=== PATIENT | female | born 1965 | race Hispanic/Latino ===

== ENCOUNTER → 2018-07-06 | Day surgery (SDC) | payer MEDICARE ==
[~2018-07-06] MED LIST: ACTOS30 MG PO; AMITRIPTYLINE H25 MG PO; ATORVASTATIN CA20 MG PO; CYMBALTA30 MG PO; FENTANYL CITRATE/PF 100MCG/2 ML INJ ONE; INVOKANA PO; LISINOPRIL2.5 MG PO; METFORMIN HCL500 MG PO; MIDAZOLAM HCL 2 MG/2 ML VIAL ONE; MOTRIN200 MG PO; NEURONTIN400 MG PO; PROPOFOL IV EMULSION 10 MG/ML 50 ML VIAL ONE; TRESIBA SC; TRICOR48 MG PO; ULTRACET TABLE1 EACH PO
--- OUTSIDE RECORDS SUMMARY | 2018-07-06 05:56 | XMS REPORT | Summary of Care ---
Author Author [facility] Organization [facility] Address Unknown Phone Unavailable Encounter BEENA Carpio(DEB) [id number] Date(s): 01/11/15 - 01/13/15 [facility] [address] [place], [place] [id number]- Discharge Disposition: Home Attending Physician: Humberto Chopra MD Admitting Physician: Humberto Chopra MD Vital Signs 1 2 3 Most recent to oldest [Reference Range]: 157.48 cm (01/11/15 2:20 PM) 157.48 cm (01/11/15 10:41 AM) Height 1 2 3 Most recent to oldest [Reference Range]: 100.7 kg (01/12/15 5:00 AM) Current Weight 1 2 3 Most recent to oldest [Reference Range]: 97.9 DegF (01/13/15 3:09 PM) 98.1 DegF (01/13/15 12:35 PM) 98.9 DegF (01/13/15 7:39 AM) Temperature Oral [96.4-99.1 DegF] 1 2 3 Most recent to oldest [Reference Range]: 118/79 mmHg (01/13/15 3:09 PM) 107/73 mmHg (01/13/15 12:35 PM) 126/81 mmHg (01/13/15 7:39 AM) Blood Pressure [90-140/60-90 mmHg] 1 2 3 Most recent to oldest [Reference Range]: 20 BRMIN (01/13/15 3:09 PM) 20 BRMIN (01/13/15 12:35 PM) 18 BRMIN (01/13/15 7:39 AM) Respiratory Rate [14-20 BRMIN] 1 2 3 Most recent to oldest [Reference Range]: 82 bpm (01/13/15 3:09 PM) 80 bpm (01/13/15 12:35 PM) 84 bpm (01/13/15 7:39 AM) Peripheral Pulse Rate [60-100 bpm] 1 2 3 Most recent to oldest [Reference Range]: 97.727 kg (01/11/15 2:20 PM) 97.727 kg (01/11/15 10:41 AM) Weight 1 2 3 Most recent to oldest [Reference Range]: 39.41 m2 (01/11/15 2:20 PM) 39.41 m2 (01/11/15 10:41 AM) Body Mass Index Problem List Condition Effective Dates Status Health Status Informant Boil(Confirmed)1 Resolved Diabetes(Confirmed) Resolved Hypertension(Confirm Resolved ed) 1left abd. Allergies, Adverse Reactions, Alerts Substance Reaction Severity Status NKDA Active Medications acetaminophen 650 mg, 2 tab, Route: PO, Drug form: TAB, Q4H, Dosing Weight 97.727, kg, PRN For Temp > 100.4 F, Start date: 01/11/15 14:12:00, Duration: 30 day, Stop date: 02/10/15 14:11:00 Notes: Do not exceed 4 gm/day. (Same as: Tylenol) Start Date: 01/11/15 Stop Date: 01/13/15 Status: Discontinued acetaminophen-codeine 300 mg-30 mg oral tablet 1 tab, PO, Q6H, PRN pain, # 28 tab, 0 Refill(s) Start Date: 01/12/15 Stop Date: 01/13/15 Status: Discontinued albuterol-ipratropium 2.5-0.5 mg inhalation solution 3 ml, Route: NEB, Drug Form: SOLN, Dosing Weight 97.727, kg, RQ6H, Start date: 1 20:00:00, Duration: 30 day, Stop date: 02/10/15 14:00:00 Notes: (Same as: Duoneb) Start Date: 01/11/15 Stop Date: 01/13/15 Status: Discontinued alteplase 79.2 mg, Route: IV, ONCE, Dosing Weight 97.727, kg, For Stroke Infusion, Priorit y: STAT, Start date: 01/11/15 11:46:00, Stop date: 01/11/15 11:46:00 Start Date: 01/11/15 Stop Date: 01/11/15 Status: Completed alteplase 8.8 mg, Route: IV, ONCE, Dosing Weight 97.727, kg, For Stroke Bolus, Priority: S TAT, Start date: 01/11/15 11:46:00, Stop date: 01/11/15 11:46:00 Start Date: 01/11/15 Stop Date: 01/11/15 Status: Completed aspirin 81 mg tablet, enteric coated 81 mg, 1 tab, Route: PO, Drug form: ECTAB, ONCE, Priority: NOW, Start date: 12/26 12/10 16:28:00, Stop date: 01/13/15 16:28:00 Notes: Do not crush or chew.(Same As: Ecotrin) Start Date: 01/13/15 Stop Date: 01/13/15 Status: Completed aspirin 81 mg tablet, enteric coated 81 mg=1 tab, PO, Daily, # 30 tab, 0 Refill(s) Start Date: 01/13/15 Stop Date: 02/12/15 Status: Ordered aspirin 81 mg tablet, enteric coated 81 mg, 1 tab, Route: PO, Drug form: ECTAB, Daily, Dosing Weight 97.727, kg, Star t date: 01/13/15 10:30:00, Duration: 30 day, Stop date: 02/12/15 9:00:00 Notes: Do not crush or chew.(Same As: Ecotrin) Start Date: 01/13/15 Stop Date: 01/13/15 Status: Discontinued aspirin 81 mg tablet, enteric coated 81 mg, 1 tab, Route: PO, Drug form: ECTAB, Daily, Dosing Weight 97.727, kg, Star t date: 01/14/15 9:00:00, Duration: 30 day, Stop date: 02/12/15 9:00:00 Notes: Do not crush or chew.(Same As: Ecotrin) Start Date: 01/14/15 Stop Date: 01/13/15 Status: Canceled atorvastatin 10 mg, 1 tab, Route: PO, Drug form: TAB, Bedtime, Dosing Weight 97.727, kg, Star t date: 01/13/15 21:00:00, Duration: 30 day, Stop date: 02/11/15 21:00:00 Notes: (Same As: Lipitor) Start Date: 01/13/15 Stop Date: 01/13/15 Status: Canceled atorvastatin 10 mg, 1 tab, Route: PO, Drug form: TAB, Bedtime, Dosing Weight 97.727, kg, Star t date: 01/13/15 21:00:00, Duration: 30 day, Stop date: 02/11/15 21:00:00 Notes: (Same As: Lipitor) Start Date: 01/13/15 Stop Date: 01/13/15 Status: Canceled atorvastatin 10 mg oral tablet 10 mg=1 tab, PO, Bedtime, # 30 tab, 0 Refill(s) Start Date: 01/13/15 Stop Date: 02/12/15 Status: Ordered BD Normal Saline Flush 10 mL, Route: IVP, Drug Form: INJ, PRN, PRN Line Flush, Start date: 01/12/15 15: 07:00, Duration: 30 day, Stop date: 02/11/15 14:06:00 Notes: (Same as: BD Posiflush) Start Date: 01/12/15 Stop Date: 01/13/15 Status: Discontinued calcium carbonate 500 mg (200 mg elemental calcium) oral tablet 1,000 mg, 2 tab, Route: PO, Drug form: TAB, PRN, Dosing Weight 97.727, kg, PRN A bnormal Lab Result, FOR ICU USE ONLY, Start date: 01/11/15 14:12:00, Duration: 3 0 day, Stop date: 02/10/15 13:11:00 Notes: 500mg elemental [id number] calcium carbonate. Contains 500mg element al calcium. (Same As: OsCal 500) Start Date: 01/11/15 Stop Date: 01/12/15 Status: Discontinued calcium carbonate 500 mg (200 mg elemental calcium) oral tablet 500 mg, 1 tab, Route: PO, Drug form: TAB, PRN, Dosing Weight 97.727, kg, PRN Abn ormal Lab Result, FOR ICU USE ONLY, Start date: 01/11/15 14:12:00, Duration: 30 day, Stop date: 02/10/15 13:11:00 Notes: 500mg elemental [id number] calcium carbonate. Contains 500mg element al calcium. (Same As: OsCal 500) Start Date: 01/11/15 Stop Date: 01/12/15 Status: Discontinued calcium gluconate 1 gm, 50 mL, Route: IVPB, Drug form: INJ, PRN, Dosing Weight 97.727, kg, PRN Abn ormal Lab Result, Start date: 01/11/15 14:12:00, Duration: 30 day, Stop date: 13:11:00, FOR ICU USE ONLY Special Instructions: FOR ICU USE ONLY Start Date: 01/11/15 Stop Date: 01/12/15 Status: Discontinued Dextrose 50% Syringe 12.5 gm, 25 mL, Route: IVP, Drug Form: INJ, Dosing Weight 97.727, kg, PRN, PRN B lood Glucose Results, Start date: 01/12/15 21:40:00, Duration: 30 day, Stop date : 02/11/15 20:39:00 Start Date: 01/12/15 Stop Date: 01/13/15 Status: Discontinued Dextrose 50% Syringe 25 gm, 50 mL, Route: IVP, Drug Form: INJ, Dosing Weight 97.727, kg, PRN, PRN Blo od Glucose Results, Start date: 01/12/15 21:40:00, Duration: 30 day, Stop date: 02/11/15 20:39:00 Start Date: 01/12/15 Stop Date: 01/13/15 Status: Discontinued gabapentin 800 mg oral tablet 800 mg=1 tab, PO, TID, # 270 tab, 0 Refill(s) Start Date: 01/12/15 Status: Ordered glucagon 1 mg, Route: IM, Drug form: PDR/INJ, PRN, Dosing Weight 97.727, kg, PRN Blood Gl ucose Results, Start date: 01/12/15 21:40:00, Duration: 30 day, Stop date: 02/11 20:39:00 Start Date: 01/12/15 Stop Date: 01/13/15 Status: Discontinued insulin aspart 10 unit, 0.1 mL, Route: SUB-Q, Drug form: SOLN, TID-Before Meals, Dosing Weight 97.727, kg, PRN Blood Glucose Results, Start date: 01/12/15 21:40:00, Duration: 30 day, Stop date: 02/11/15 21:39:00 Notes: Roll in palms of hands gently; Do not shake vigorously. (Same as: NovoLO G)"single patient use only" Stable for 28 days at room temperature.Expires in _ ____ days from Date Start Date: 01/12/15 Stop Date: 01/13/15 Status: Discontinued insulin aspart 8 unit, 0.08 mL, Route: SUB-Q, Drug form: SOLN, TID-Before Meals, Dosing Weight 97.727, kg, PRN Blood Glucose Results, Start date: 01/12/15 21:40:00, Duration: 30 day, Stop date: 02/11/15 21:39:00 Notes: Roll in palms of hands gently; Do not shake vigorously. (Same as: NovoLO G)"single patient use only" Stable for 28 days at room temperature.Expires in _ ____ days from Date Start Date: 01/12/15 Stop Date: 01/13/15 Status: Discontinued insulin aspart 6 unit, 0.06 mL, Route: SUB-Q, Drug form: SOLN, TID-Before Meals, Dosing Weight 97.727, kg, PRN Blood Glucose Results, Start date: 01/12/15 21:40:00, Duration: 30 day, Stop date: 02/11/15 21:39:00 Notes: Roll in palms of hands gently; Do not shake vigorously. (Same as: NovoLO G)"single patient use only" Stable for 28 days at room temperature.Expires in _ ____ days from Date Start Date: 01/12/15 Stop Date: 01/13/15 Status: Discontinued insulin aspart 4 unit, 0.04 mL, Route: SUB-Q, Drug form: SOLN, TID-Before Meals, Dosing Weight 97.727, kg, PRN Blood Glucose Results, Start date: 01/12/15 21:40:00, Duration: 30 day, Stop date: 02/11/15 21:39:00 Notes: Roll in palms of hands gently; Do not shake vigorously. (Same as: NovoLO G)"single patient use only" Stable for 28 days at room temperature.Expires in _ ____ days from Date Start Date: 01/12/15 Stop Date: 01/13/15 Status: Discontinued insulin aspart 2 unit, 0.02 mL, Route: SUB-Q, Drug form: SOLN, TID-Before Meals, Dosing Weight 97.727, kg, PRN Blood Glucose Results, Start date: 01/12/15 21:40:00, Duration: 30 day, Stop date: 02/11/15 21:39:00 Notes: Roll in palms of hands gently; Do not shake vigorously. (Same as: NovoLO G)"single patient use only" Stable for 28 days at room temperature.Expires in _ ____ days from Date Start Date: 01/12/15 Stop Date: 01/13/15 Status: Discontinued labetalol 10 mg, 2 mL, Route: IVP, Drug form: INJ, Q10Min, Dosing Weight 97.727, kg, PRN H ypertension, For SBP > 180 mmHg and/or DBP > 105 mmHg, Priority: Routine, Start date: 01/11/15 14:20:00, Duration: 30 day, Stop date: 02/10/15 13:19:00 Notes: (Same as: Normodyne, Trandate)Push over 2 minutes Give bolus over 2-3 mi nutes. Start Date: 01/11/15 Stop Date: 01/13/15 Status: Discontinued Levemir 100 units/mL See Instructions, 50 units SUQ every morning, 0 Refill(s) Special Instructions: 50 units SUQ every morning Start Date: 01/12/15 Status: Ordered lisinopril 2.5 mg, 0.5 tab, Route: PO, Drug form: TAB, Daily, Dosing Weight 97.727, kg, Sta rt date: 01/12/15 9:00:00, Duration: 30 day, Stop date: 02/10/15 9:00:00 Notes: (Same as: Prinivil, Zestril) Start Date: 01/12/15 Stop Date: 01/13/15 Status: Discontinued lisinopril 2.5 mg oral tablet 2.5 mg=1 tab, PO, Daily, # 30 tab, 0 Refill(s) Start Date: 01/12/15 Status: Ordered magnesium oxide 800 mg, 2 tab, Route: PO, Drug form: TAB, PRN, Dosing Weight 97.727, kg, PRN Abn ormal Lab Result, FOR ICU USE ONLY, Start date: 01/11/15 14:12:00, Duration: 30 day, Stop date: 02/10/15 13:11:00 Notes: (Same as: Mag-Ox 400)Magnesium oxide [id number] elemental magnesiumDose= ____mg magnesium oxide (___mg elemental magnesium) Start Date: 01/11/15 Stop Date: 01/12/15 Status: Discontinued magnesium sulfate 2 gm, 50 mL, Route: IVPB, Drug form: INJ, PRN, Dosing Weight 97.727, kg, PRN Abn ormal Lab Result, Start date: 01/11/15 14:12:00, Duration: 30 day, Stop date: 13:11:00, FOR ICU USE ONLY Special Instructions: FOR ICU USE ONLY Start Date: 01/11/15 Stop Date: 01/12/15 Status: Discontinued metFORMIN 500 mg oral tablet 1,000 mg=2 tab, PO, BID-Meals, # 30 tab, 0 Refill(s) Start Date: 01/12/15 Status: Ordered Neutra-Phos 2 pkt, Route: PO, Drug Form: PDR/REC, Dosing Weight 97.727, kg, PRN, PRN Abnorma l Lab Result, FOR ICU USE ONLY, Start date: 01/11/15 14:12:00, Duration: 30 day, Stop date: 02/10/15 13:11:00 Notes: (Same as: Neutra-Phos) Each 1.25 gm pkt has 250mg phosphorous. Mix w/2.5 oz water and stir. Start Date: 01/11/15 Stop Date: 01/12/15 Status: Discontinued pantoprazole 40 mg, Route: IVP, Drug form: INJ, Daily, Dosing Weight 97.727, kg, Start date: 01/12/15 9:00:00, Duration: 30 day, Stop date: 02/10/15 9:00:00 Notes: For IV push reconstitute with 10 ml 0.9% sodium chloride and push over 2 minutes. (Same as: Protonix) Start Date: 01/12/15 Stop Date: 01/12/15 Status: Discontinued potassium chloride 20 mEq, 15 mL, Route: NJ, Drug form: LIQ, PRN, Dosing Weight 97.727, kg, PRN Abn ormal Lab Result, Start date: 01/11/15 14:12:00, Duration: 30 day, Stop date: 13:11:00, FOR ICU USE ONLY Special Instructions: FOR ICU USE ONLY Notes: (Same as: Potassium Chloride) Start Date: 01/11/15 Stop Date: 01/12/15 Status: Discontinued potassium chloride 20 mEq, 100 mL, Route: IVPB, Drug form: INJ, PRN, Dosing Weight 97.727, kg, PRN Abnormal Lab Result, Via central line, Start date: 01/11/15 14:12:00, Duration: 30 day, Stop date: 02/10/15 13:11:00, FOR ICU USE ONLY Special Instructions: FOR ICU USE ONLY Notes: (Same as: KCL) Infuse no faster than 10 mEq/hr if given peripherally. Start Date: 01/11/15 Stop Date: 01/12/15 Status: Discontinued potassium chloride 10 mEq, 100 mL, Route: IVPB, Drug form: INJ, PRN, Dosing Weight 97.727, kg, PRN Abnormal Lab Result, Via peripheral line, Start date: 01/11/15 14:12:00, Duratio n: 30 day, Stop date: 02/10/15 13:11:00, FOR ICU USE ONLY Special Instructions: FOR ICU USE ONLY Notes: Infuse at a rate of 10 mEq/hr.(Same as: KCL) Start Date: 01/11/15 Stop Date: 01/12/15 Status: Discontinued potassium chloride 20 mEq, 1 tab, Route: PO, Drug form: ERTAB, PRN, Dosing Weight 97.727, kg, PRN A bnormal Lab Result, Start date: 01/11/15 14:12:00, Duration: 30 day, Stop date: 02/10/15 13:11:00, FOR ICU USE ONLY Special Instructions: FOR ICU USE ONLY Notes: (Same as: K-Dur 20)"Do Not Crush" With food and full glass of water Start Date: 01/11/15 Stop Date: 01/12/15 Status: Discontinued potassium phosphate 15 mmol, 250 mL, Route: IVPB, Drug form: INJ, PRN, Dosing Weight 97.727, kg, PRN Abnormal Lab Result, Start date: 01/11/15 14:12:00, Duration: 30 day, Stop date: 02/10/15 13:11:00, FOR ICU USE ONLY Special Instructions: FOR ICU USE ONLY Notes: (Same as: K Phosphate) Start Date: 01/11/15 Stop Date: 01/12/15 Status: Discontinued potassium phosphate 30 mmol, 250 mL, Route: IVPB, Drug form: INJ, PRN, Dosing Weight 97.727, kg, PRN Abnormal Lab Result, Start date: 01/11/15 14:12:00, Duration: 30 day, Stop date: 02/10/15 13:11:00, FOR ICU USE ONLY Special Instructions: FOR ICU USE ONLY Notes: (Same as: K Phosphate.) Start Date: 01/11/15 Stop Date: 01/12/15 Status: Discontinued potassium phosphate + Sodium Chloride 0.9% IV 250 mL 45 mmol, 15 mL, Route: IVPB, PRN, Dosing Weight 97.727, kg, PRN Abnormal Lab Res ult, Start date: 01/11/15 14:12:00, Duration: 30 day, Stop date: 02/10/15 13:11: 00, FOR ICU USE ONLY Special Instructions: FOR ICU USE ONLY Notes: (Same as: K Phosphate.) 1 mMol phoshate has 1.47 mEq potassium Infuse o lizz 4 hours Start Date: 01/11/15 Stop Date: 01/12/15 Status: Discontinued Protonix 40 mg, 1 tab, Route: PO, Drug form: ECTAB, Before Dinner, Dosing Weight 97.727, kg, Start date: 01/13/15 16:30:00, Duration: 30 day, Stop date: 02/11/15 16:30:0 0 Notes: Tablet should not be chewed or crushed.(Same as: Protonix) Start Date: 01/13/15 Stop Date: 01/13/15 Status: Discontinued Protonix 40 mg, Route: IVP, Drug form: INJ, Daily, Dosing Weight 97.727, kg, Patient is N PO, Priority: STAT, Start date: 01/11/15 14:12:00, Duration: 30 day, Stop date: 02/10/15 9:00:00 Notes: For IV push reconstitute with 10 ml 0.9% sodium chloride and push over 2 minutes. (Same as: Protonix) Start Date: 01/11/15 Stop Date: 01/13/15 Status: Discontinued Saline Flush 0.9% 10 ml, Route: IVP, Drug Form: INJ, Dosing Weight 97.727, kg, PRN, PRN Line Flush , Start date: 01/11/15 14:12:00, Duration: 30 day, Stop date: 02/10/15 13:11:00 Notes: (Same as: BD Posiflush) Start Date: 01/11/15 Stop Date: 01/12/15 Status: Discontinued Saline Flush 0.9% 10 ml, Route: IVP, Drug Form: INJ, Dosing Weight 97.727, kg, Q12H, Start date: 1 21:00:00, Duration: 30 day, Stop date: 02/10/15 9:00:00 Notes: (Same as: BD Posiflush) Start Date: 01/11/15 Stop Date: 01/12/15 Status: Discontinued Saline Flush 0.9% 10 ml, Route: IVP, Drug Form: INJ, Dosing Weight 97.727, kg, PRN, PRN Line Flush , Start date: 01/11/15 14:20:00, Stop date: 02/10/15 13:19:00 Notes: (Same as: BD Posiflush) Start Date: 01/11/15 Stop Date: 01/12/15 Status: Discontinued Saline Flush 0.9% 10 ml, Route: IVP, Drug Form: INJ, Dosing Weight 97.727, kg, Q12H, Start date: 1 21:00:00, Duration: 30 day, Stop date: 02/10/15 9:00:00 Notes: (Same as: BD Posiflush) Start Date: 01/11/15 Stop Date: 01/12/15 Status: Discontinued senna 8.6 mg, 1 tab, Route: PO, Drug Form: TAB, Dosing Weight 97.727, kg, Q12H, Start date: 01/11/15 21:00:00, Duration: 30 day, Stop date: 02/10/15 9:00:00 Notes: (Same as: Lin) Start Date: 01/11/15 Stop Date: 01/13/15 Status: Discontinued Sodium Chloride 0.9% IV 250 mL, Route: IVPB, Start date: 01/12/15 15:07:00, Duration: 30 day, Stop date: 02/11/15 14:06:00, PRN Line Flush Start Date: 01/12/15 Stop Date: 01/13/15 Status: Discontinued Sodium Chloride 0.9% IV 1,000 mL 1,000 mL, Rate: 75 ml/hr, Infuse over: 13.3 hr, Route: IV, Dosing Weight 97.727 kg, Total Volume: 1,000, Start date: 01/11/15 14:28:00, Stop date: 02/10/15 14:2 7:00 Start Date: 01/11/15 Stop Date: 01/13/15 Status: Discontinued sodium phosphate 15 mmol, 250 mL, Route: IVPB, Drug form: INJ, PRN, Dosing Weight 97.727, kg, PRN Abnormal Lab Result, Start date: 01/11/15 14:12:00, Duration: 30 day, Stop date: 02/10/15 13:11:00, FOR ICU USE ONLY Special Instructions: FOR ICU USE ONLY Start Date: 01/11/15 Stop Date: 01/12/15 Status: Discontinued sodium phosphate 30 mmol, 250 mL, Route: IVPB, Drug form: INJ, PRN, Dosing Weight 97.727, kg, PRN Abnormal Lab Result, Start date: 01/11/15 14:12:00, Duration: 30 day, Stop date: 02/10/15 13:11:00, FOR ICU USE ONLY Special Instructions: FOR ICU USE ONLY Start Date: 01/11/15 Stop Date: 01/12/15 Status: Discontinued sodium phosphate + Sodium Chloride 0.9% IV 250 mL 45 mmol, 15 mL, Route: IVPB, PRN, Dosing Weight 97.727, kg, PRN Abnormal Lab Res ult, Start date: 01/11/15 14:12:00, Duration: 30 day, Stop date: 02/10/15 13:11: 00, FOR ICU USE ONLY Special Instructions: FOR ICU USE ONLY Start Date: 01/11/15 Stop Date: 01/12/15 Status: Discontinued tramadol 50 mg oral tablet 50 mg=1 tab, PO, Q6H, PRN Pain, # 40 tab, 0 Refill(s) Start Date: 01/12/15 Stop Date: 01/22/15 Status: Ordered TriCor 145 mg, PO, Daily, 0 Refill(s) Start Date: 01/12/15 Status: Ordered Results ELECTROLYTES 1 2 3 Most recent to oldest [Reference Range]: 139 mEq/L (01/13/15 5:39 AM) 136 mEq/L (01/12/15 3:36 AM) 130 mEq/L *LOW* (01/11/15 11:10 AM) Sodium Lvl [135-145 mEq/L] 4.1 mEq/L (01/13/15 5:39 AM) 4.4 mEq/L (01/12/15 3:36 AM) 5.0 mEq/L (01/11/15 11:10 AM) Potassium Lvl [3.5-5.1 mEq/L] 106 mEq/L (01/13/15 5:39 AM) 105 mEq/L (01/12/15 3:36 AM) 102 mEq/L (01/11/15 11:10 AM) Chloride Lvl [95-109 mEq/L] 24 mEq/L (01/13/15 5:39 AM) 22 mEq/L *LOW* (01/12/15 3:36 AM) 23 mEq/L *LOW* (01/11/15 11:10 AM) CO2 [24-32 mEq/L] 13.1 mEq/L (01/13/15 5:39 AM) 13.4 mEq/L (01/12/15 3:36 AM) 10.0 mEq/L (01/11/15 11:10 AM) AGAP [10.0-20.0 mEq/L] CHEM PANEL 1 2 3 Most recent to oldest [Reference Range]: 0.8 mg/dL (01/13/15 5:39 AM) 1.1 mg/dL (01/12/15 3:36 AM) 1.4 mg/dL (01/11/15 11:10 AM) Creatinine Lvl [0.5-1.4 mg/dL] 86 mL/min/1.73m2 1 *NA* (01/13/15 5:39 AM) 58 mL/min/1.73m2 2 *NA* (01/12/15 3:36 AM) 44 mL/min/1.73m2 3 *NA* (01/11/15 11:10 AM) eGFR 15 mg/dL (01/13/15 5:39 AM) 19 mg/dL (01/12/15 3:36 AM) 26 mg/dL *HI* (01/11/15 11:10 AM) BUN [7-22 mg/dL] 19 (01/11/15 11:10 AM) B/C Ratio [6-25] 170 mg/dL *HI* (01/13/15 5:39 AM) 149 mg/dL *HI* (01/12/15 3:36 AM) 346 mg/dL *HI* (01/11/15 11:10 AM) Glucose Lvl [70-99 mg/dL] 8.2 g/dL (01/11/15 11:10 AM) Total Protein [6.4-8.4 g/dL] 3.4 g/dL *LOW* (01/11/15 11:10 AM) Albumin Lvl [3.5-5.0 g/dL] 4.8 g/dL *HI* (01/11/15 11:10 AM) Globulin [2.0-4.0 g/dL] 0.7 (01/11/15 11:10 AM) A/G Ratio [0.7-1.6] 8.7 mg/dL (01/13/15 5:39 AM) 8.8 mg/dL (01/12/15 3:36 AM) 9.3 mg/dL (01/11/15 11:10 AM) Calcium Lvl [8.5-10.5 mg/dL] 3.4 mg/dL (01/12/15 3:36 AM) Phosphorus [2.5-4.5 mg/dL] 1.8 mg/dL (01/12/15 3:36 AM) Magnesium Lvl [1.8-2.4 mg/dL] 22 unit/L (01/11/15 11:10 AM) ALT [0-65 unit/L] 21 unit/L (01/11/15 11:10 AM) AST [0-37 unit/L] 72 unit/L (01/11/15 11:10 AM) Alk Phos [39-136 unit/L] 0.3 mg/dL (01/11/15 11:10 AM) Bili Total [0.2-1.3 mg/dL] 1Result Comment: The eGFR is calculated using the CKD-EPI formula. In most young, healthy individuals the eGFR will be >90 mL/min/1.73m2. The eGFR declines with age. An eGFR of 60-89 may be normal in some populations, particularly the elderly, for whom the CKD-EPI formula has not been extensively validated. Use of the eGFR is not recommended in the following populations: Individuals with unstable creatinine concentrations, including patients and those with serious co-morbid conditions. Patients with extremes in muscle mass or diet. The data above are obtained from the National Kidney Disease Education Program ( NKDEP) which additionally recommends that when the eGFR is used in patients with extremes of body mass index for purposes of drug dosing, the eGFR should be mul tiplied by the estimated BMI. 2Result Comment: The eGFR is calculated using the CKD-EPI formula. In most young, healthy individuals the eGFR will be >90 mL/min/1.73m2. The eGFR declines with age. An eGFR of 60-89 may be normal in some populations, particularly the elderly, for whom the CKD-EPI formula has not been extensively validated. Use of the eGFR is not recommended in the following populations: Individuals with unstable creatinine concentrations, including patients and those with serious co-morbid conditions. Patients with extremes in muscle mass or diet. The data above are obtained from the National Kid[employer] Disease Education Program ( NKDEP) which additionally recommends that when the eGFR is used in patients with extremes of body mass index for purposes of drug dosing, the eGFR should be mul tiplied by the estimated BMI. 3Result Comment: The eGFR is calculated using the CKD-EPI formula. In most young, healthy individuals the eGFR will be >90 mL/min/1.73m2. The eGFR declines with age. An eGFR of 60-89 may be normal in some populations, particularly the elderly, for whom the CKD-EPI formula has not been extensively validated. Use of the eGFR is not recommended in the following populations: Individuals with unstable creatinine concentrations, including patients and those with serious co-morbid conditions. Patients with extremes in muscle mass or diet. The data above are obtained from the National Kidney Disease Education Program ( NKDEP) which additionally recommends that when the eGFR is used in patients with extremes of body mass index for purposes of drug dosing, the eGFR should be mul tiplied by the estimated BMI. CARDIAC ENZYMES 1 2 3 Most recent to oldest [Reference Range]: 210 unit/L *HI* (01/11/15 11:10 AM) Total CK [12-191 unit/L] 3.4 ng/mL (01/11/15 11:10 AM) CK MB [0.5-3.6 ng/mL] 1.6 (01/11/15 11:10 AM) CK MB Index [0.0-2.5] <0.02 ng/mL (01/12/15 3:36 AM) <0.02 ng/mL (01/11/15 2:56 PM) <0.02 ng/mL (01/11/15 11:10 AM) Troponin-I [0.00-0.40 ng/mL] LIPIDS 1 2 3 Most recent to oldest [Reference Range]: 3.12 *LOW* (01/11/15 2:56 PM) 3.18 *LOW* (01/11/15 2:56 PM) CHD Risk [3.90-5.80] 159 mg/dL (01/11/15 2:56 PM) 159 mg/dL (01/11/15 2:56 PM) Chol [<=199 mg/dL] 111 mg/dL (01/11/15 2:56 PM) 111 mg/dL (01/11/15 2:56 PM) Trig [<=149 mg/dL] 51 mg/dL *LOW* (01/11/15 2:56 PM) 50 mg/dL *LOW* (01/11/15 2:56 PM) HDL [>=61 mg/dL] 86 mg/dL (01/11/15 2:56 PM) 87 mg/dL (01/11/15 2:56 PM) LDL (Calculated) [<=99 mg/dL] 22 *NA* (01/11/15 2:56 PM) 22 *NA* (01/11/15 2:56 PM) VLDL SPECIAL CHEMISTRY 1 2 3 Most recent to oldest [Reference Range]: 10.1 % *HI* (01/11/15 2:56 PM) Hgb A1C [<=5.6 %] THYROID PANEL 1 2 3 Most recent to oldest [Reference Range]: 2.490 uIU/mL (01/11/15 2:56 PM) TSH [0.360-3.740 uIU/mL] PARATHYROID PROFILE 1 2 3 Most recent to oldest [Reference Range]: 1.23 mMol/L (01/12/15 3:36 AM) Ca Ion WB [1.05-1.25 mMol/L] 1.21 mMol/L (01/12/15 3:36 AM) Ca Norm WB [1.05-1.25 mMol/L] URINE AND STOOL 1 2 3 Most recent to oldest [Reference Range]: Clear (01/11/15 2:35 PM) UA Turbidity [Clear] Light Yellow *NA* (01/11/15 2:35 PM) UA Color [Yellow] 5.0 (01/11/15 2:35 PM) UA pH [5.0-8.0] 1.012 (01/11/15 2:35 PM) UA Spec Grav [<=1.030] 500mg/dL *NA* (01/11/15 2:35 PM) UA Glucose Negative (01/11/15 2:35 PM) UA Blood [Negative] Negative mg/dL *NA* (01/11/15 2:35 PM) UA Ketones [Negative mg/dL] Negative mg/dL (01/11/15 2:35 PM) UA Protein [Negative mg/dL] <=1.0 mg/dL *NA* (01/11/15 2:35 PM) UA Urobilinogen [0.1-1.0 mg/dL] Negative *NA* (01/11/15 2:35 PM) UA Bili [Negative] Negative (01/11/15 2:35 PM) UA Leuk Est [Negative] Negative (01/11/15 2:35 PM) UA Nitrite [Negative] 1 /HPF (01/11/15 2:35 PM) UA WBC [0-5 /HPF] <1 /HPF (01/11/15 2:35 PM) UA RBC [0-2 /HPF] Occasional /HPF *NA* (01/11/15 2:35 PM) UA Bacteria [None Seen /HPF] None Seen *NA* (01/11/15 2:35 PM) UA Sq Epi Few /LPF *NA* (01/11/15 2:35 PM) UA Mucus [None Seen /LPF] HEMATOLOGY 1 2 3 Most recent to oldest [Reference Range]: 6.2 K/CMM (01/13/15 5:39 AM) 10.8 K/CMM *HI* (01/11/15 11:10 AM) WBC [3.7-10.4 K/CMM] 3.87 M/CMM *LOW* (01/13/15 5:39 AM) 3.99 M/CMM *LOW* (01/11/15 11:10 AM) RBC [4.20-5.40 M/CMM] 11.5 g/dL *LOW* (01/13/15 5:39 AM) 11.8 g/dL *LOW* (01/11/15 11:10 AM) Hgb [12.0-16.0 g/dL] 34.7 % *LOW* (01/13/15 5:39 AM) 36.4 % (01/11/15 11:10 AM) Hct [36.0-48.0 %] 89.5 fL (01/13/15 5:39 AM) 91.1 fL (01/11/15 11:10 AM) MCV [80.0-98.0 fL] 29.6 pg (01/13/15 5:39 AM) 29.5 pg (01/11/15 11:10 AM) MCH [27.0-31.0 pg] 33.1 g/dL (01/13/15 5:39 AM) 32.4 g/dL (01/11/15 11:10 AM) MCHC [32.0-36.0 g/dL] 13.7 % (01/13/15 5:39 AM) 13.5 % (01/11/15 11:10 AM) RDW [11.5-14.5 %] 214 K/CMM (01/13/15 5:39 AM) 253 K/CMM (01/11/15 11:10 AM) Platelet [133-450 K/CMM] 11.2 fL *HI* (01/13/15 5:39 AM) 10.7 fL *HI* (01/11/15 11:10 AM) MPV [7.4-10.4 fL] 66.1 % (01/13/15 5:39 AM) 71.4 % (01/11/15 11:10 AM) Segs [45.0-75.0 %] 19.0 % *LOW* (01/13/15 5:39 AM) 13.5 % *LOW* (01/11/15 11:10 AM) Lymphocytes [20.0-40.0 %] 10.9 % (01/13/15 5:39 AM) 9.2 % (01/11/15 11:10 AM) Monocytes [2.0-12.0 %] 3.6 % (01/13/15 5:39 AM) 5.4 % *HI* (01/11/15 11:10 AM) Eosinophils [0.0-4.0 %] 0.4 % (01/13/15 5:39 AM) 0.5 % (01/11/15 11:10 AM) Basophils [0.0-1.0 %] 4.1 K/CMM (01/13/15 5:39 AM) 7.7 K/CMM (01/11/15 11:10 AM) Segs-Bands # [1.5-8.1 K/CMM] 1.2 K/CMM (01/13/15 5:39 AM) 1.4 K/CMM (01/11/15 11:10 AM) Lymphocytes # [1.0-5.5 K/CMM] 0.7 K/CMM (01/13/15 5:39 AM) 1.0 K/CMM *HI* (01/11/15 11:10 AM) Monocytes # [0.0-0.8 K/CMM] 0.2 K/CMM (01/13/15 5:39 AM) 0.6 K/CMM *HI* (01/11/15 11:10 AM) Eosinophils # [0.0-0.5 K/CMM] 0.0 K/CMM (01/13/15 5:39 AM) 0.1 K/CMM (01/11/15 11:10 AM) Basophils # [0.0-0.2 K/CMM] 14.6 seconds (01/12/15 3:36 AM) 12.9 seconds (01/11/15 11:10 AM) PT [12.0-14.7 seconds] 1.11 (01/12/15 3:36 AM) 0.94 (01/11/15 11:10 AM) INR [0.85-1.17] 19.5 seconds 4 *LOW* (01/11/15 11:10 AM) PTT [22.9-35.8 seconds] 4Result Comment: PT/INR and PTT results called to Pj Payne RN at 1130. 01/11/2015 11:31. BACTERIAL - SEROLOGY 1 2 3 Most recent to oldest [Reference Range]: Negative (01/11/15 2:35 PM) MRSA by PCR Immunizations Vaccine Date Refusal Reason influenza virus vaccine, inactivated 01/13/15 Procedures Procedure Date Related Diagnosis Body Site section1 Procedure2 1x2 2removal of left abd. cyst Social History Social History Type Response Substance Abuse Use: None. Alcohol Never Smoking Status Unknown if ever smoked; Exposure to Tobacco Smoke Unable to obtain; Cigarette Smoking Last 365 Days Unable to obtain; Reg Smoking Cessation Counseling No Assessment and Plan Extracted from: Title: [facility] Progress Note * Author: Marcela Calles DO Date: 01/13/15 Impression and Plan 49yo F with PMH DM, HTN, obesity p/w facial droop, dysarthria, L sided weakness: 1. Dysarthria and weakness - tPA given at admission for suspected CVA - CT, MRI, MRA head and neck all wnl - Echo limited due to poor quality but shows no obvious defect - Neuro consulted - we appreciate the recs - Passed swallow eval; no difficulties with ambulation per PT's note - PE inconsistent between examiners though is significant for dysarthria - Current complaint of R-sided weakness inconsistent with initial presentation of L-sided weakness - Due to negative workup and irregular presentation, this is likely not neurological etiology - Consider other etiologies, such as conversion disorder - Will start ASA for stroke prophylaxis per neuro's recs 2. DM2 - Uncontrolled; Hgb A1c 10.1 - Medium dose SSI - Will need outpatient f/u 3. HLD - Atorvastatin 10mg FEN: Carb controlled diet, saline lock PPx: SCDs for DVT prophy Dispo: Will d/c home today with PCP f/u in 3-5 days Discussed with attending, Dr. Chopra, who agrees. Marcela Calles DO, PGY-2 MSO# [id number] Extracted from: Title: Neurologic Problem Admission Author: Amadeo Sierra MD Date: 01/11/15 H&P * Impression and Plan 49 yo with acute onset of dizziness and scanning speech, dysmetria of left arm, but also give away weakness of left arm, now s/p TPA -post-TPA measures with BP < 180/105 -[address], hold ASA and DVT pharm until then -statin -MRI brain, MRA head and neck -TTE, telemetry -lipds, hbA1c
--- OUTSIDE RECORDS SUMMARY | 2018-07-06 05:56 | XMS REPORT | Continuity of Care Document ---
Author Author [facility] Interface Address Unknown Phone Unavailable Problems Problem Status Onset Date Classification Date Reported Comments Source SPLIT NIGHT [address]81 Active 05/27/2016 [facility] AMS Active 01/11/2015 [facility] ACUTE DYSARTHIA LEFT HEMIPLEGIA Active 01/11/2015 [facility] Boil<sup>1</sup> Resolved Problem 06/11/2016 left abd. [facility] Diabetes Resolved Problem 06/11/2016 [facility] Hypertension Resolved Problem 06/11/2016 [facility] DYSARTHRIA FOLLOWING UNSPECIFIED CEREBRO Active [facility] OBSTRUCTIVE SLEEP APNEA (ADULT) (PEDIATR Active [facility] Medications Medication Details Route Status Patient Instructions Ordering Provider Order Date Source Aspirin 81 MG Enteric Coated Tablet 81 mg, 1 tab, Route: PO, Drug form: ECTAB, Daily, Dosing Weight 97.727, kg, Start date: 01/14/15 9:00:00, Duration: 30 day, Stop date: 02/12/15 9:00:00Notes: Do not crush or chew. (Same As: Ecotrin) No Longer Active 01/14/2015 [facility] atorvastatin 10 mg, 1 tab, Route: PO, Drug form: TAB, Bedtime, Dosing Weight 97.727, kg, Start date: 01/13/15 21:00:00, Duration: 30 day, Stop date: 02/11/15 21:00:00Notes: (Same As: Lipitor) Inactive 01/14/2015 [facility] atorvastatin 10 mg oral tablet 10 mg=1 tab, PO, Bedtime, # 30 tab, 0 Refill(s) Active 01/13/2015 [facility] Aspirin 81 MG Enteric Coated Tablet 81 mg=1 tab, PO, Daily, # 30 tab, 0 Refill(s) Active 01/13/2015 [facility] Protonix 40 mg, 1 tab, Route: PO, Drug form: ECTAB, Before Dinner, Dosing Weight 97.727, kg, Start date: 01/13/15 16:30:00, Duration: 30 day, Stop date: 02/11/15 16:30:00Notes: Tablet should not be chewed or crushed. (Same as: Protonix) Inactive 01/13/2015 [facility] aspirin 81 mg tablet, enteric coated 81 mg, 1 tab, Route: PO, Drug form: ECTAB, ONCE, Priority: NOW, Start date: 01/13/15 16:28:00, Stop date: 01/13/15 16:28:00Notes: Do not crush or chew. (Same As: Ecotrin) Inactive 01/13/2015 [facility] Aspirin 81 MG Enteric Coated Tablet 81 mg, 1 tab, Route: PO, Drug form: ECTAB, Daily, Dosing Weight 97.727, kg, Start date: 01/13/15 10:30:00, Duration: 30 day, Stop date: 02/12/15 9:00:00Notes: Do not crush or chew. (Same As: Ecotrin) Inactive 01/13/2015 [facility] Insulin, Aspart, Human 10 unit, 0.1 mL, Route: SUB-Q, Drug form: SOLN, TID-Before Meals, Dosing Weight 97.727, kg, PRN Blood Glucose Results, Start date: 01/12/15 21:40:00, Duration: 30 day, Stop date: 02/11/15 21:39:00Notes: Roll in palms of hands gently; Do not shake vigorously. (Same as: NovoLOG) "single patient use only" Stable for 28 days at room temperature. Expires in days from Date No Longer Active 01/13/2015 [facility] Glucagon 1 mg, Route: IM, Drug form: PDR/INJ, PRN, Dosing Weight 97.727, kg, PRN Blood Glucose Results, Start date: 01/12/15 21:40:00, Duration: 30 day, Stop date: 02/11/15 20:39:00 No Longer Active 01/13/2015 [facility] Dextrose 50% Syringe 12.5 gm, 25 mL, Route: IVP, Drug Form: INJ, Dosing Weight 97.727, kg, PRN, PRN Blood Glucose Results, Start date: 01/12/15 21:40:00, Duration: 30 day, Stop date: 02/11/15 20:39:00 No Longer Active 01/13/2015 [facility] Sodium Chloride 0.9% IV 250 mL, Route: IVPB, Start date: 01/12/15 15:07:00, Duration: 30 day, Stop date: 02/11/15 14:06:00, PRN Line Flush No Longer Active 01/12/2015 [facility] BD Normal Saline Flush 10 mL, Route: IVP, Drug Form: INJ, PRN, PRN Line Flush, Start date: 01/12/15 15:07:00, Duration: 30 day, Stop date: 02/11/15 14:06:00Notes: (Same as: BD Posiflush) No Longer Active 01/12/2015 [facility] pantoprazole 40 mg, Route: IVP, Drug form: INJ, Daily, Dosing Weight 97.727, kg, Start date: 01/12/15 9:00:00, Duration: 30 day, Stop date: 02/10/15 9:00:00Notes: For IV push reconstitute with 10 ml 0.9% sodium c hloride and push over 2 minutes. (Same as: Protonix) Inactive 01/12/2015 [facility] Lisinopril 2.5 mg, 0.5 tab, Route: PO, Drug form: TAB, Daily, Dosing Weight 97.727, kg, Start date: 01/12/15 9:00:00, Duration: 30 day, Stop date: 02/10/15 9:00:00Notes: (Same as: Prinivil, Zestril) No Longer Active 01/12/2015 [facility] insulin detemir 100 UNT/ML Injectable Solution [Levemir] See Instructions, 50 units SUQ every morning, 0 Refill(s)Special Instructions: 50 units SUQ every morning Active 01/12/2015 [facility] Acetaminophen 300 MG / Codeine Phosphate 30 MG Oral Tablet 1 tab, PO, Q6H, PRN pain, # 28 tab, 0 Refill(s) No Longer Active 01/12/2015 [facility] tramadol hydrochloride 50 MG Oral Tablet 50 mg=1 tab, PO, Q6H, PRN Pain, # 40 tab, 0 Refill(s) Active 01/12/2015 [facility] Metformin hydrochloride 500 MG Oral Tablet 1,000 mg=2 tab, PO, BID-Meals, # 30 tab, 0 Refill(s) Active 01/12/2015 [facility] Tricor 145 mg, PO, Daily, 0 Refill(s) Active 01/12/2015 [facility] gabapentin 800 MG Oral Tablet 800 mg=1 tab, PO, TID, # 270 tab, 0 Refill(s) Active 01/12/2015 [facility] lisinopril 2.5 mg oral tablet 2.5 mg=1 tab, PO, Daily, # 30 tab, 0 Refill(s) Active 01/12/2015 [facility] Saline Flush 0.9% 10 ml, Route: IVP, Drug Form: INJ, Dosing Weight 97.727, kg, Q12H, Start date: 01/11/15 21:00:00, Duration: 30 day, Stop date: 02/10/15 9:00:00Notes: (Same as: BD Posiflush) No Longer Active 01/12/2015 [facility] sennosides, RETIREMENT 8.6 mg, 1 tab, Route: PO, Drug Form: TAB, Dosing Weight 97.727, kg, Q12H, Start date: 01/11/15 21:00:00, Duration: 30 day, Stop date: 02/10/15 9:00:00Notes: (Same as: Senokot) No Longer Active 01/12/2015 [facility] Albuterol 0.833 MG/ML / Ipratropium [place] 0.167 MG/ML Inhalant Solution 3 ml, Route: NEB, Drug Form: SOLN, Dosing Weight 97.727, kg, RQ6H, Start date: 01/11/15 20:00:00, Duration: 30 day, Stop date: 02/10/15 14:00:00Notes: (Same as: Duoneb) No Longer Active 01/12/2015 [facility] Sodium Chloride 0.154 MEQ/ML Injectable Solution 1,000 mL, Rate: 75 ml/hr, Infuse over: 13.3 hr, Route: IV, Dosing Weight 97.727 kg, Total Volume: 1,000, Start date: 01/11/15 14:28:00, Stop date: 02/10/15 14:27:00 No Longer Active 01/11/2015 [facility] Saline Flush 0.9% 10 ml, Route: IVP, Drug Form: INJ, Dosing Weight 97.727, kg, PRN, PRN Line Flush, Start date: 01/11/15 14:20:00, Stop date: 02/10/15 13:19:00Notes: (Same as: BD Posiflush) No Longer Active 01/11/2015 [facility] Labetalol 10 mg, 2 mL, Route: IVP, Drug form: INJ, Q10Min, Dosing Weight 97.727, kg, PRN Hypertension, For SBP > 180 mmHg and/or DBP > 105 mmHg, Priority: Routine, Start date: 01/11/15 14:20:00, Duration: 30 day, Stop date: 02/10/15 13:19:00Notes: (Same as: Normodyne, Trandate) Push over 2 minutes Give bolus over 2-3 minutes. No Longer Active 01/11/2015 [facility] Calcium Carbonate 500 MG Chewable Tablet 1,000 mg, 2 tab, Route: PO, Drug form: TAB, PRN, Dosing Weight 97.727, kg, PRN Abnormal Lab Result, FOR ICU USE ONLY, Start date: 01/11/15 14:12:00, Duration: 30 day, Stop date: 02/10/15 13:11:00Notes: 500mg elemental [id number] calcium carbonate. Contains 500mg elemental calcium. (Same As: OsCal 500) No Longer Active 01/11/2015 [facility] potassium phosphate + Sodium Chloride 0.9% IV 250 mL 45 mmol, 15 mL, Route: IVPB, PRN, Dosing Weight 97.727, kg, PRN Abnormal Lab Result, Start date: 01/11/15 14:12:00, Duration: 30 day, Stop date: 02/10/15 13:11:00, FOR ICU USE ONLYSpecial Instructions: FOR ICU USE ONLYNotes: (Same as: K Phosphate.) 1 mMol phoshate has 1.47 mEq potassium Infuse over 4 hours No Longer Active 01/11/2015 [facility] Neutra-Phos 2 pkt, Route: PO, Drug Form: PDR/REC, Dosing Weight 97.727, kg, PRN, PRN Abnormal Lab Result, FOR ICU USE ONLY, Start date: 01/11/15 14:12:00, Duration: 30 day, Stop date: 02/10/15 13:11:00Notes: (Same as: Neutra-Phos) Each 1.25 gm pkt has 250mg phosphorous. Mix w/2.5oz water and stir. No Longer Active 01/11/2015 [facility] Magnesium Sulfate 2 gm, 50 mL, Route: IVPB, Drug form: INJ, PRN, Dosing Weight 97.727, kg, PRN Abnormal Lab Result, Start date: 01/11/15 14:12:00, Duration: 30 day, Stop date: 02/10/15 13:11:00, FOR ICU USE ONLYSpecial Instructions: FOR ICU USE ONLY No Longer Active 01/11/2015 [facility] sodium phosphate 15 mmol, 250 mL, Route: IVPB, Drug form: INJ, PRN, Dosing Weight 97.727, kg, PRN Abnormal Lab Result, Start date: 01/11/15 14:12:00, Duration: 30 day, Stop date: 02/10/15 13:11:00, FOR ICU USE ONLYSpecial Instructions: FOR ICU USE ONLY No Longer Active 01/11/2015 [facility] Magnesium Oxide 800 mg, 2 tab, Route: PO, Drug form: TAB, PRN, Dosing Weight 97.727, kg, PRN Abnormal Lab Result, FOR ICU USE ONLY, Start date: 01/11/15 14:12:00, Duration: 30 day, Stop date: 02/10/15 13:11:00Notes: (Same as: Mag-Ox 400) Magnesium oxide [id number] elemental magnesium Dose=____mg magnesium oxide (___mg elemental magnesium) No Longer Active 01/11/2015 [facility] Calcium Gluconate 1 gm, 50 mL, Route: IVPB, Drug form: INJ, PRN, Dosing Weight 97.727, kg, PRN Abnormal Lab Result, Start date: 01/11/15 14:12:00, Duration: 30 day, Stop date: 02/10/15 13:11:00, FOR ICU USE ONLYSpecial Instructions: FOR ICU USE ONLY No Longer Active 01/11/2015 [facility] sodium phosphate + Sodium Chloride 0.9% IV 250 mL 45 mmol, 15 mL, Route: IVPB, PRN, Dosing Weight 97.727, kg, PRN Abnormal Lab Result, Start date: 01/11/15 14:12:00, Duration: 30 day, Stop date: 02/10/15 13:11:00, FOR ICU USE ONLYSpecial Instructions: FOR ICU USE ONLY No Longer Active 01/11/2015 [facility] potassium phosphate 15 mmol, 250 mL, Route: IVPB, Drug form: INJ, PRN, Dosing Weight 97.727, kg, PRN Abnormal Lab Result, Start date: 01/11/15 14:12:00, Duration: 30 day, Stop date: 02/10/15 13:11:00, FOR ICU USE ONLYSpecial Instructions: FOR ICU USE ONLYNotes: (Same as: K Phosphate) No Longer Active 01/11/2015 [facility] potassium chloride 20 mEq, 15 mL, Route: NJ, Drug form: LIQ, PRN, Dosing Weight 97.727, kg, PRN Abnormal Lab Result, Start date: 01/11/15 14:12:00, Duration: 30 day, Stop date: 02/10/15 13:11:00, FOR ICU USE ONLYSpecial Instructions: FOR ICU USE ONLYNotes: (Same as: Potassium Chloride) No Longer Active 01/11/2015 [facility] Saline Flush 0.9% 10 ml, Route: IVP, Drug Form: INJ, Dosing Weight 97.727, kg, PRN, PRN Line Flush, Start date: 01/11/15 14:12:00, Duration: 30 day, Stop date: 02/10/15 13:11:00Notes: (Same as: BD Posiflush) No Longer Active 01/11/2015 [facility] Protonix 40 mg, Route: IVP, Drug form: INJ, Daily, Dosing Weight 97.727, kg, Patient is NPO, Priority: STAT, Start date: 01/11/15 14:12:00, Duration: 30 day, Stop date: 02/10/15 9:00:00Notes: For IV push irene nstitute with 10 ml 0.9% sodium chloride and push over 2 minutes. (Same as: Protonix) No Longer Active 01/11/2015 [facility] Acetaminophen 650 mg, 2 tab, Route: PO, Drug form: TAB, Q4H, Dosing Weight 97.727, kg, PRN For Temp > 100.4 F, Start date: 01/11/15 14:12:00, Duration: 30 day, Stop date: 02/10/15 14:11:00Notes: Do not exceed 4 gm/day. (Same as: Tylenol) No Longer Active 01/11/2015 [facility] Alteplase 79.2 mg, Route: IV, ONCE, Dosing Weight 97.727, kg, For Stroke Infusion, Priority: STAT, Start date: 01/11/15 11:46:00, Stop date: 01/11/15 11:46:00 Inactive 01/11/2015 [facility] Allergies, Adverse Reactions, Alerts Substance Category Reaction Severity Reaction type Status Date Reported Comments Source Immunizations Immunization Date Given Site Status Last Updated Comments Source influenza virus vaccine, inactivated 01/13/2015 Right Deltoid completed Gm [facility] Results Order Name Results Value Reference Range Date Interpretation Comments Source CHEM PANEL eGFR 86 mL/min/1.73m2 01/13/2015 Result Comment: The eGFR is calculated using the [...] from the National Kidney Disease Education Program (NKDEP) which additionally recommends that when the eGFR is used in patients with extremes of body mass index for purposes of drug dosing, the eGFR should be multiplied by the estimated BMI. [facility] CHEM PANEL Calcium Lvl 8.7 mg/dL 8.5 - 10.5 01/13/2015 [facility] CHEM PANEL CO2 24 meq/L 24 - 32 01/13/2015 [facility] CHEM PANEL Potassium Lvl 4.1 meq/L 3.5 - 5.1 01/13/2015 [facility] CHEM PANEL Chloride Lvl 106 meq/L 95 - 109 01/13/2015 [facility] CHEM PANEL Sodium Lvl 139 meq/L 135 - 145 01/13/2015 [facility] CHEM PANEL Creatinine Lvl 0.8 mg/dL 0.5 - 1.4 01/13/2015 [facility] CHEM PANEL BUN 15 mg/dL 7 - 22 01/13/2015 [facility] CHEM PANEL Glucose Lvl 170 mg/dL 70 - 99 01/13/2015 [facility] CHEM PANEL AGAP 13.1 meq/L 10.0 - 20.0 01/13/2015 [facility] HEMATOLOGY Hct 34.7 % 36.0 - 48.0 01/13/2015 [facility] RBC 3.87 M/CMM 4.20 - 5.40 01/13/2015 [facility] HEMATOLOGY Hgb 11.5 g/dL 12.0 - 16.0 01/13/2015 [facility] WBC 6.2 K/CMM 3.7 - 10.4 01/13/2015 [facility] MPV 11.2 fL 7.4 - 10.4 01/13/2015 [facility] Platelet 214 K/CMM 133 - 450 01/13/2015 [facility] MCH 29.6 pg 27.0 - 31.0 01/13/2015 [facility] MCHC 33.1 g/dL 32.0 - 36.0 01/13/2015 [facility] RDW 13.7 % 11.5 - 14.5 01/13/2015 [facility] MCV 89.5 fL 80.0 - 98.0 01/13/2015 [facility] Lymphocytes # 1.2 K/CMM 1.0 - 5.5 01/13/2015 [facility] HEMATOLOGY Segs-Bands # 4.1 K/CMM 1.5 - 8.1 01/13/2015 [facility] Basophils 0.4 % 0.0 - 1.0 01/13/2015 [facility] Monocytes # 0.7 K/CMM 0.0 - 0.8 01/13/2015 [facility] HEMATOLOGY Eosinophils # 0.2 K/CMM 0.0 - 0.5 01/13/2015 [facility] Basophils # 0.0 K/CMM 0.0 - 0.2 01/13/2015 [facility] Lymphocytes 19.0 % 20.0 - 40.0 01/13/2015 [facility] HEMATOLOGY Segs 66.1 % 45.0 - 75.0 01/13/2015 [facility] HEMATOLOGY Monocytes 10.9 % 2.0 - 12.0 01/13/2015 [facility] HEMATOLOGY Eosinophils 3.6 % 0.0 - 4.0 01/13/2015 [facility] Brain wo contrast MRI Brain wo contrast MRI MRI BRAIN WITHOUT CONTRAST CLINICAL INFORMATION: Ataxia. Left-sided weakness. COMPARISON: CT head of 01/11/2015. TECHNIQUE: Multiecho multiplanar images of the brain were done without contrast injection. FINDINGS: The ventricles, sulci and cisterns are appropriate for age. There are a few scattered nonspecific foci of T2/FLAIR signal abnormality may reflect migraine- related change or early minimal chronic small vessel ischemic change. No mass, hemorrhage or collection is identified. The pituitary gland is normal in size. The cerebellar tonsils are normal in position. There is no restricted diffusion. Normal T2 flow voids are present. Mild chronic inflammatory change of the paranasal sinuses. Partial opacification of the mastoid air cells. IMPRESSION: 1. No definite acute infarct or intracranial hemorrhage detected. No mass or neoplasm. 2. Few scattered nonspecific foci of T2/FLAIR signal abnormality may reflect migraine- related change or early minimal chronic small vessel ischemic change. 3. Mild chronic inflammatory change of the paranasal sinuses. SL: 12 01/12/2015 - - Read by: Ellis Blanco MD Dictated Date/time: 01/12/15 14:13 Electronically Signed by: Ellis Blanco MD 01/12/15 14:19 FINAL REPORT [facility] Brain contrast MRA Brain wo contrast MRA MRA OF THE BRAIN: TECHNIQUE: 3-D [id number] acquisitions without contrast were done. MIP reconstructions were obtained. FINDINGS: The internal carotid, anterior and middle cerebral arteries are patent without stenosis or evidence of aneurysms. None of the communicating arteries are visualized. The distal vertebral, basilar and posterior cerebral arteries are patent without evidence of stenosis or aneurysms. A dominant right PICA and dominant left AICA are noted. Bilateral superior cerebellar arteries are visualized. IMPRESSION: No significant cerebral MRA abnormalities. SL:13 01/12/2015 - - Read by: Syed Lora MD Dictated Date/time: 01/12/15 13:30 Electronically Signed by: Syed Lora MD 01/12/15 13:32 FINAL REPORT [facility] Neck wo contrast MRA Neck wo contrast MRA MRA OF THE NECK: TECHNIQUE: 2-D and 3-D [id number] acquisitions were done without contrast. MIP reconstructions were obtained. Stenosis measurements are according to NASCET criteria. FINDINGS: There is no significant plaque, stenosis or evidence of dissection in the cervical carotid vertebral arteries. Codominant vertebral arteries are noted. IMPRESSION: No significant cervical carotid or vertebral disease. SL:13 01/12/2015 - - Read by: Syed Lora MD Dictated Date/time: 01/12/15 13:26 Electronically Signed by: Syed Lora MD 01/12/15 13:29 FINAL REPORT [facility] CARDIAC ENZYMES Troponin-I null 0.00 - 0.40 01/12/2015 [facility] CHEM PANEL Phosphorus 3.4 mg/dL 2.5 - 4.5 01/12/2015 [facility] CHEM PANEL Magnesium Lvl 1.8 mg/dL 1.8 - 2.4 01/12/2015 [facility] CHEM PANEL eGFR 58 mL/min/1.73m2 01/12/2015 Result Comment: The eGFR is calculated using the [...] from the National Kidney Disease Education Program (NKDEP) which additionally recommends that when the eGFR is used in patients with extremes of body mass index for purposes of drug dosing, the eGFR should be multiplied by the estimated BMI. [facility] CHEM PANEL Calcium Lvl 8.8 mg/dL 8.5 - 10.5 01/12/2015 [facility] CHEM PANEL Sodium Lvl 136 meq/L 135 - 145 01/12/2015 [facility] CHEM PANEL Potassium Lvl 4.4 meq/L 3.5 - 5.1 01/12/2015 [facility] CHEM PANEL Chloride Lvl 105 meq/L 95 - 109 01/12/2015 [facility] CHEM PANEL CO2 22 meq/L 24 - 32 01/12/2015 [facility] CHEM PANEL AGAP 13.4 meq/L 10.0 - 20.0 01/12/2015 [facility] CHEM PANEL Creatinine Lvl 1.1 mg/dL 0.5 - 1.4 01/12/2015 [facility] CHEM PANEL BUN 19 mg/dL 7 - 22 01/12/2015 [facility] CHEM PANEL Glucose Lvl 149 mg/dL 70 - 99 01/12/2015 [facility] HEMATOLOGY PT 14.6 s 12.0 - 14.7 01/12/2015 [facility] HEMATOLOGY INR 1.11 0.85 - 1.17 01/12/2015 [facility] PARATHYROID PROFILE Ca Ion WB 1.23 mMol/L 1.05 - 1.25 01/12/2015 [facility] PARATHYROID PROFILE Ca Norm WB 1.21 mMol/L 1.05 - 1.25 01/12/2015 [facility] CARDIAC ENZYMES Troponin-I null 0.00 - 0.40 01/11/2015 [facility] LIPIDS Trig 111 mg/dL <=149 mg/dL 01/11/2015 [facility] LIPIDS VLDL 22 01/11/2015 [facility] LIPIDS LDL (Calculated) 86 mg/dL <=99 mg/dL 01/11/2015 [facility] LIPIDS HDL 51 mg/dL >=61 mg/dL 01/11/2015 [facility] LIPIDS Chol 159 mg/dL <=199 mg/dL 01/11/2015 [facility] LIPIDS CHD Risk 3.12 3.90 - 5.80 01/11/2015 [facility] LIPIDS VLDL 22 01/11/2015 [facility] LIPIDS LDL (Calculated) 87 mg/dL <=99 mg/dL 01/11/2015 [facility] LIPIDS CHD Risk 3.18 3.90 - 5.80 01/11/2015 [facility] LIPIDS HDL 50 mg/dL >=61 mg/dL 01/11/2015 [facility] LIPIDS Chol 159 mg/dL <=199 mg/dL 01/11/2015 [facility] LIPIDS Trig 111 mg/dL <=149 mg/dL 01/11/2015 [facility] SPECIAL CHEMISTRY Hgb A1C 10.1 % <=5.6 % 01/11/2015 [facility] THYROID PANEL TSH 2.490 uIU/mL 0.360 - 3.740 01/11/2015 [facility] BACTERIAL - SEROLOGY MRSA by PCR Negative (01/11/15 2:35 PM) 01/11/2015 [facility] URINE AND STOOL UA Glucose 500mg/dL 01/11/2015 [facility] URINE AND STOOL UA Urobilinogen null 0.1 - 1.0 01/11/2015 [facility] URINE AND STOOL UA Sq Epi None Seen 01/11/2015 [facility] URINE AND STOOL UA Mucus Few /LPF None Seen /LPF 01/11/2015 [facility] URINE AND STOOL UA Nitrite Negative (01/11/15 2:35 PM) Negative 01/11/2015 [facility] URINE AND STOOL UA Bili Negative *NA* (01/11/15 2:35 PM) Negative 01/11/2015 [facility] URINE AND STOOL UA Blood Negative (01/11/15 2:35 PM) Negative 01/11/2015 [facility] URINE AND STOOL UA Protein Negative mg/dL Negative mg/dL 01/11/2015 [facility] URINE AND STOOL UA Ketones Negative mg/dL Negative mg/dL 01/11/2015 [facility] URINE AND STOOL UA pH 5.0 5.0 - 8.0 01/11/2015 [facility] URINE AND STOOL UA RBC null 0 - 2 01/11/2015 [facility] URINE AND STOOL UA Bacteria Occasional /HPF None Seen /HPF 01/11/2015 [facility] URINE AND STOOL UA Leuk Est Negative (01/11/15 2:35 PM) Negative 01/11/2015 [facility] URINE AND STOOL UA WBC 1 /HPF 0 - 5 01/11/2015 [facility] URINE AND STOOL UA Spec Grav 1.012 <=1.030 01/11/2015 [facility] URINE AND STOOL UA Turbidity Clear (01/11/15 2:35 PM) Clear 01/11/2015 [facility] URINE AND STOOL UA Color Light Yellow *NA* (01/11/15 2:35 PM) Yellow 01/11/2015 [facility] CARDIAC ENZYMES CK MB Index 1.6 0.0 - 2.5 01/11/2015 [facility] CARDIAC ENZYMES Troponin-I null 0.00 - 0.40 01/11/2015 [facility] CARDIAC ENZYMES CK MB 3.4 ng/mL 0.5 - 3.6 01/11/2015 [facility] CARDIAC ENZYMES Total CK 210 unit/L 12 - 191 01/11/2015 [facility] CHEM PANEL eGFR 44 mL/min/1.73m2 01/11/2015 Result Comment: The eGFR is calculated using the [...] from the National Kidney Disease Education Program (NKDEP) which additionally recommends that when the eGFR is used in patients with extremes of body mass index for purposes of drug dosing, the eGFR should be multiplied by the estimated BMI. [facility] CHEM PANEL Globulin 4.8 g/dL 2.0 - 4.0 01/11/2015 [facility] CHEM PANEL A/G Ratio 0.7 0.7 - 1.6 01/11/2015 [facility] CHEM PANEL CO2 23 meq/L 24 - 32 01/11/2015 [facility] CHEM PANEL B/C Ratio 19 6 - 25 01/11/2015 [facility] CHEM PANEL AGAP 10.0 meq/L 10.0 - 20.0 01/11/2015 [facility] CHEM PANEL ALT 22 unit/L 0 - 65 01/11/2015 [facility] CHEM PANEL AST 21 unit/L 0 - 37 01/11/2015 [facility] CHEM PANEL Bili Total 0.3 mg/dL 0.2 - 1.3 01/11/2015 [facility] CHEM PANEL Alk Phos 72 unit/L 39 - 136 01/11/2015 [facility] CHEM PANEL Calcium Lvl 9.3 mg/dL 8.5 - 10.5 01/11/2015 [facility] CHEM PANEL Chloride Lvl 102 meq/L 95 - 109 01/11/2015 [facility] CHEM PANEL Albumin Lvl 3.4 g/dL 3.5 - 5.0 01/11/2015 [facility] CHEM PANEL Total Protein 8.2 g/dL 6.4 - 8.4 01/11/2015 [facility] CHEM PANEL Sodium Lvl 130 meq/L 135 - 145 01/11/2015 [facility] CHEM PANEL Potassium Lvl 5.0 meq/L 3.5 - 5.1 01/11/2015 [facility] CHEM PANEL Glucose Lvl 346 mg/dL 70 - 99 01/11/2015 [facility] CHEM PANEL Creatinine Lvl 1.4 mg/dL 0.5 - 1.4 01/11/2015 [facility] CHEM PANEL BUN 26 mg/dL 7 - 22 01/11/2015 [facility] [facility] HEMATOLOGY Eosinophils # 0.6 K/CMM 0.0 - 0.5 01/11/2015 [facility] HEMATOLOGY Basophils # 0.1 K/CMM 0.0 - 0.2 01/11/2015 [facility] HEMATOLOGY Basophils 0.5 % 0.0 - 1.0 01/11/2015 [facility] HEMATOLOGY Segs 71.4 % 45.0 - 75.0 01/11/2015 [facility] Segs-Bands # 7.7 K/CMM 1.5 - 8.1 01/11/2015 [facility] Monocytes # 1.0 K/CMM 0.0 - 0.8 01/11/2015 [facility] Lymphocytes # 1.4 K/CMM 1.0 - 5.5 01/11/2015 [facility] Eosinophils 5.4 % 0.0 - 4.0 01/11/2015 [facility] Monocytes 9.2 % 2.0 - 12.0 01/11/2015 [facility] Lymphocytes 13.5 % 20.0 - 40.0 01/11/2015 [facility] PTT 19.5 s 22.9 - 35.8 01/11/2015 Result Comment: PT/INR and PTT results called to Pj Payne RN at 1130. 01/11/2015 11:31. [facility] Hct 36.4 % 36.0 - 48.0 01/11/2015 [facility] Hgb 11.8 g/dL 12.0 - 16.0 01/11/2015 [facility] RBC 3.99 M/CMM 4.20 - 5.40 01/11/2015 [facility] WBC 10.8 K/CMM 3.7 - 10.4 01/11/2015 [facility] RDW 13.5 % 11.5 - 14.5 01/11/2015 [facility] MCHC 32.4 g/dL 32.0 - 36.0 01/11/2015 [facility] MCH 29.5 pg 27.0 - 31.0 01/11/2015 [facility] MCV 91.1 fL 80.0 - 98.0 01/11/2015 [facility] MPV 10.7 fL 7.4 - 10.4 01/11/2015 [facility] Platelet 253 K/CMM 133 - 450 01/11/2015 [facility] INR 0.94 0.85 - 1.17 01/11/2015 [facility] PT 12.9 s 12.0 - 14.7 01/11/2015 [facility] Chest 1view DX Chest 1view DX PROCEDURE: Chest 1view REASON FOR EXAM: See Clinic Indication CLINICAL INDICATION: CVA COMPARISON: None. FINDINGS: Low lung volume. Mild right basilar atelectasis. No focal consolidation, pleural effusion, or pneumothorax. Prominent cardiac silhouette and mediastinum. SL: 12 01/11/2015 - - Read by: Ellis Balnco MD Dictated Date/time: 01/11/15 12:06 Electronically Signed by: Ellis Blanco MD 01/11/15 12:06 FINAL REPORT [facility] Brain Stroke wo contrast CT Brain Stroke wo contrast CT CT head without contrast. CLINICAL INDICATION: Confusion. Dysarthria. Left-sided weakness. COMPARISON: [None]. TECHNIQUE: Multiple contiguous axial images of the brain were performed without IV contrast. FINDINGS: Small posterior left frontal cortical calcification is present near the vertex. Ventricles and subarachnoid spaces are appropriate for age. No acute territorial infarction or intracranial hemorrhage. No extra-axial fluid collection. Adkins-white distinction is preserved. No mass, mass-effect, or midline shift. Mild chronic inflammatory change of the paranasal sinuses. Partial opacification of the mastoid air cells. IMPRESSION: No acute intracranial process detected. Results were called to Dr. Abdalla on 01/11/2015 at 11:00 a.m. per stroke protocol. SL: 12 01/11/2015 - - Read by: Ellis Blanco MD Dictated Date/time: 01/11/15 10:59 Electronically Signed by: Ellis Blanco MD 01/11/15 11:01 FINAL REPORT [facility] Vital Signs Vital Sign Value Date Comments Source Respitory Rate 20 01/13/2015 [facility] Systolic (mm Hg) 118 01/13/2015 [facility] Diastolic (mm Hg) 79 01/13/2015 [facility] Temperature Oral (F) 97.9 F 01/13/2015 [facility] Heart Rate 82 01/13/2015 [facility] Respitory Rate 20 01/13/2015 [facility] Systolic (mm Hg) 107 01/13/2015 [facility] Diastolic (mm Hg) 73 01/13/2015 [facility] Temperature Oral (F) 98.1 F 01/13/2015 [facility] Heart Rate 80 01/13/2015 [facility] Systolic (mm Hg) 126 01/13/2015 [facility] Diastolic (mm Hg) 81 01/13/2015 [facility] Temperature Oral (F) 98.9 F 01/13/2015 [facility] Heart Rate 84 01/13/2015 [facility] Respitory Rate 18 01/13/2015 [facility] Weight 97.727 01/11/2015 [facility] Height 157.48 cm 01/11/2015 [facility] BMI Calculated 39.41 01/11/2015 [facility] BMI Calculated 39.41 01/11/2015 [facility] Height 157.48 cm 01/11/2015 [facility] Weight 97.727 01/11/2015 [facility] Encounters Location Location Details Encounter Type Encounter Number Reason For Visit Attending Provider ADM Date DC Date Status Source [facility] Inpatient [id number] Humberto Bellyelenalizbet 01/11/2015 01/14/2015 [facility] Outpatient [id number] Non Physician 06/09/2016 06/09/2016 [facility] Procedures Procedure Code Date Perfomer Comments Source section<sup>1</sup> 45117286 x2 [facility] Procedure<sup>2</sup> [id number] removal of left abd. cyst [facility] section<sup>1</sup> 37574127 x2 [facility] Procedure<sup>2</sup> [id number] removal of left abd. cyst [facility]
--- OUTSIDE RECORDS SUMMARY | 2018-07-06 05:57 | XMS REPORT | Summary of Care ---
Author Author [facility] Organization [facility] Address Unknown Phone Unavailable Encounter HQ Pérez_fran(FIN) [id number] Date(s): 06/08/16 - 06/08/16 [facility] [address] [place] [address]- [phone] Discharge Disposition: Home or Self Care Attending Physician: Physician, Non Associated MD Referring Physician: PCP, None MD Vital Signs No data available for this section Problem List Condition Effective Dates Status Health Status Informant Boil(Confirmed)1 Resolved Diabetes(Confirmed) Resolved Hypertension(Confirm Resolved ed) 1left abd. Allergies, Adverse Reactions, Alerts Substance Reaction Severity Status NKDA Active Medications No data available for this section Results No data available for this section Immunizations Given and Recorded Vaccine Date Status Refusal Reason influenza virus vaccine, inactivated 01/13/15 Given Procedures Procedure Date Related Diagnosis Body Site section1 Procedure2 1x2 2removal of left abd. cyst Social History Social History Type Response Substance Abuse Use: None. Alcohol Never Smoking Status Unknown if ever smoked; Exposure to Tobacco Smoke Unable to obtain; Cigarette Smoking Last 365 Days Unable to obtain; Reg Smoking Cessation Counseling No Assessment and Plan No data available for this section
--- OUTSIDE RECORDS SUMMARY | 2018-07-06 05:57 | XMS REPORT ---
[facility] Address Unknown Phone Unavailable Care Team Providers Care Public Defender Name Role Phone Unavailable Unavailable Payers Payer Name Policy Type Policy Number Effective Date Expiration Date Problems This patient has no known problems. Allergies, Adverse Reactions, Alerts Allergy Name Allergy Type Status Severity Reaction(s) Onset Date Inactive Date Treating Clinician Comments No Known Allergies DA Active U 2016-07-24 00:00:00 Medications This patient has no known medications. Encounters Start Date/Time End Date/Time Encounter Type Admission Type Attending [facility] Facility Care Department Encounter ID 2018-08-16 00:00:00 2018-08-16 00:00:00 Outpatient [facility] [id number] 2018-07-10 00:00:00 2018-07-10 00:00:00 Outpatient [facility] [id number] 2018-06-22 14:36:50 2018-06-22 14:36:50 Outpatient [facility] [id number] 2018-06-14 00:00:00 2018-06-14 00:00:00 Outpatient [facility] [id number] 2018-06-06 13:47:06 2018-06-06 13:47:06 Outpatient [facility] [id number] 2018-06-06 00:00:00 2018-06-06 00:00:00 Outpatient [facility] [id number] 2018-05-29 00:00:00 2018-05-29 00:00:00 Outpatient [facility] [id number] 2018-05-17 16:13:00 2018-05-17 16:13:00 Outpatient [facility] [id number] 2018-05-17 15:23:33 2018-05-17 15:23:33 Outpatient [facility] [id number] 2018-05-05 13:14:30 2018-05-05 13:14:30 Outpatient [facility] [id number] 2018-03-09 00:00:00 2018-03-09 00:00:00 Outpatient [facility] [id number] 2018-03-07 00:00:00 2018-03-07 00:00:00 Outpatient [facility] [id number] 2018-02-15 00:00:00 2018-02-15 00:00:00 Outpatient [facility] [id number] 2018-02-13 00:00:00 2018-02-13 00:00:00 Outpatient [facility] [id number] 2018-01-30 10:28:49 2018-01-30 10:28:49 Outpatient [facility] [id number] 2017-12-26 13:20:47 2017-12-26 13:20:47 Outpatient [facility] [id number] 2017-12-26 11:24:35 2017-12-26 11:24:35 Outpatient [facility] [id number] 2017-09-13 14:51:19 2017-09-13 14:51:19 Outpatient [facility] [id number] 2017-09-01 11:03:31 2017-09-01 11:03:31 Outpatient [facility] [id number] 2017-09-01 09:52:32 2017-09-01 09:52:32 Outpatient [facility] [id number] 2017-09-01 09:29:39 2017-09-01 09:29:39 Outpatient [facility] [id number] 2017-08-09 14:43:53 2017-08-09 14:43:53 Outpatient [facility] [id number] 2017-08-09 14:23:28 2017-08-09 14:23:28 Outpatient [facility] [id number] 2017-08-09 00:00:00 2017-08-09 00:00:00 Outpatient [facility] [id number] 2017-08-09 00:00:00 2017-08-09 00:00:00 Outpatient [facility] [id number] 2017-06-14 09:48:28 2017-06-14 09:48:28 Outpatient [facility] [id number] 2017-06-07 00:00:00 2017-06-07 00:00:00 Outpatient [facility] [id number] 2017-04-19 12:02:21 2017-04-19 12:02:21 Outpatient [facility] [id number] 2017-04-19 10:11:44 2017-04-19 10:11:44 Outpatient [facility] [id number] 2017-04-19 08:19:12 2017-04-19 08:19:12 Outpatient [facility] [id number] 2017-03-08 00:00:00 2017-03-08 00:00:00 Outpatient [facility] [id number] 2017-03-01 00:00:00 2017-03-01 00:00:00 Outpatient [facility] [id number] 2017-01-11 00:00:00 2017-01-11 00:00:00 Outpatient [facility] [id number] 2017-01-05 10:13:56 2017-01-05 10:13:56 Outpatient [facility] [id number] 2017-01-04 11:21:05 2017-01-04 11:21:05 Outpatient [facility] [id number] 2017-01-04 00:00:00 2017-01-04 00:00:00 Outpatient [facility] [id number] 2016-12-31 10:27:38 2016-12-31 10:27:38 Outpatient [facility] [id number] 2016-12-31 00:00:00 2016-12-31 00:00:00 Outpatient [facility] [id number] 2016-12-28 13:17:14 2016-12-28 13:17:14 Outpatient [facility] [id number] 2016-12-20 15:11:47 2016-12-20 15:11:47 Outpatient [facility] [id number] 2016-11-24 00:00:00 2016-11-24 00:00:00 Outpatient [facility] [id number] 2016-11-17 00:00:00 2016-11-17 00:00:00 Outpatient [facility] [id number] 2016-11-17 00:00:00 2016-11-17 00:00:00 Outpatient [facility] [id number] 2016-11-05 09:25:05 2016-11-05 09:25:05 Outpatient [facility] [id number] 2016-08-27 00:00:00 2016-08-27 00:00:00 Outpatient [facility] [id number] 2016-08-18 00:00:00 2016-08-18 00:00:00 Outpatient [facility] [id number] 2016-08-13 00:00:00 2016-08-13 00:00:00 Outpatient [facility] [id number] 2016-08-12 13:32:29 2016-08-12 13:32:29 Outpatient [facility] [id number] 2016-08-12 07:40:27 2016-08-12 07:40:27 Outpatient [facility] [id number] 2016-08-10 08:31:45 2016-08-10 08:31:45 Outpatient [facility] [id number] 2016-08-10 07:57:51 2016-08-10 07:57:51 Outpatient [facility] [id number]
--- NOTE | 2018-07-06 07:10 | NUR ---
SPIRITUAL CARE - Pre-Surgery Assessment: Pt in bed. Pt reported supportive attention from family and friends. Intervention: I provided pastoral presence, hospitality, and sympathetic listening. I acquainted pt with availability of pharmacy coordinator while hospitalized. Outcome: Pt expressed appreciation for visit. No need for follow up indicated at this time. KEN [facility] Spiritual Care Department O: [phone] Pager: [phone] number calling from)
[2018-07-06 09:00] VITALS: BP 126/91
== END | disposition home or self-care (01) ==
LOC: OR 05:52
PROVIDERS: ATTEND Internal Medicine Gastroenterology
DX: Z12.11 Encounter for screening for malignant neoplasm of colon (principal); D12.0 Benign neoplasm of cecum; D12.2 Benign neoplasm of ascending colon; K64.8 Other hemorrhoids; Z71.3 Dietary counseling and surveillance; I10 Essential (primary) hypertension; E11.9 Type 2 diabetes mellitus without complications; E66.01 Morbid (severe) obesity due to excess calories; I69.398 Other sequelae of cerebral infarction; G47.33 Obstructive sleep apnea (adult) (pediatric); F32.9 Major depressive disorder, single episode, unspecified; Z01.810 Encounter for preprocedural cardiovascular examination; Z79.84 Long term (current) use of oral hypoglycemic drugs; Z79.4 Long term (current) use of insulin; Z68.42 Body mass index [BMI] 45.0-49.9, adult
CPT/HCPCS: 36415; 45380; 45381; 45385; 82948; 88305; 93005; J2250; J2704; 45378; 45384